=== PATIENT | female | born 1975 | race Asian ===

== ENCOUNTER → 2018-02-20 | Outpatient (CLI) | payer OTHER | LOC: M RAD 16:18 | DX: Z12.31 Encounter for screening mammogram for malignant neoplasm of breast (principal) ==

== ENCOUNTER → 2019-04-30 | Outpatient (CLI) | payer OTHER ==
--- NOTE | 2019-05-01 14:10 | REP ---
Thyroid uptake and scan: History: Thyrotoxicosis with diffuse goiter. Technique: 505 microcuries of I 123 sodium iodine is ingested and 24 uptake value and functional images are acquired. Findings: Thyroid uptake is significantly increased at 60.44% (25 35%). Functional images demonstrate homogeneous uptake. The gland appears prominent in size. No cold or warm lesion is seen. Impression: Findings compatible with Graves disease. 60.44% thyroid uptake at 24 hours. Electronically Signed by Iain Lozada MD 05/01/2019 02:02 P
== END ==
LOC: M RAD 11:42
PROVIDERS: ATTEND Internal Medicine Endocrinology, Diabetes & Metabolism
DX: E05.00 Thyrotoxicosis with diffuse goiter without thyrotoxic crisis or storm (principal)
CPT/HCPCS: 78012; A9516

== ENCOUNTER → 2022-11-04 | Outpatient (CLI) | payer OTHER ==
[~2022-11-04] MED LIST: CIPR-249 PO; FLOM0.4C39 PO; KETO10TAB PO
== END ==
LOC: M WHC 13:58
PROVIDERS: ATTEND Nurse Practitioner Primary Care
DX: Z12.31 Encounter for screening mammogram for malignant neoplasm of breast (principal)

== ENCOUNTER 2022-11-08 12:36 | Emergency (ER) | payer OTHER ==
[2022-11-08 13:39] LABS: BASO % 0.2 % (0.0-1.0); EOS % 0.1 % (0.0-3.0); HEMATOCRIT 44.1 % (36.0-47.0); HEMOGLOBIN 14.4 g/dl (12.0-15.5); LYMPH # 1.3 10^3/uL (1.5-5.0); LYMPH % 8.4 % (24.0-44.0); MEAN CORPUSCULAR HEMOGLOBIN 27.9 pg (27.0-33.0); MEAN CORPUSCULAR HGB CONC 32.7 g/dl (32.0-36.5); MEAN CORPUSCULAR VOLUME 85.5 fl (80.0-96.0); MONO # 0.6 10^3/uL (0.0-0.8); MONO % 3.7 % (2.0-8.0); NEUTROPHILS # 13.8 10^3/uL (1.5-8.5); NEUTROPHILS % 87.2 % (36.0-66.0); PLATELET COUNT, AUTOMATED 284 10^3/uL (150-450); RED BLOOD COUNT 5.16 10^6/uL (4.00-5.40); WHITE BLOOD COUNT 15.8 10^3/uL (4.0-10.0)
[2022-11-08 14:07] LABS: ALBUMIN 3.7 G/DL (3.2-5.2); BILIRUBIN,DIRECT 0.2 MG/DL (<0.4); BILIRUBIN,TOTAL 0.7 MG/DL (0.3-1.2); TOTAL PROTEIN 7.2 G/DL (5.7-8.2)
[2022-11-08] MEDS ORDERED: cefTRIAXone SOD 1 GM in D5W MINI-BAG PLUS 50 ML IV ONE (16:05)
[2022-11-08] MEDS ORDERED: KETOROLAC 30 MG/ML 1ML VIAL IV ONE (16:05)
[2022-11-08] MEDS ORDERED: CIPR-249 PO (17:38)
[2022-11-08] MEDS ORDERED: KETO10TAB PO (17:38)
[2022-11-08] MEDS ORDERED: FLOM0.4C39 PO (17:38)
[2022-11-08 17:53] VITALS: BP 138/80; TEMP 98; O2SAT 99
== END 2022-11-08 17:54 | disposition home or self-care (01) ==
LOC: M ED 12:36
DX: N20.1 Calculus of ureter (principal); E03.9 Hypothyroidism, unspecified; Z79.83 Long term (current) use of bisphosphonates; Z79.899 Other long term (current) drug therapy
CPT/HCPCS: 74176; 80047; 80076; 81001; 83690; 84702; 85025; 87088; 87186; 96365; 96375; 99284; J0696; J1885

== ENCOUNTER → 2023-06-23 | Outpatient (CLI) | payer OTHER | LOC: M RAD 14:20 | PROVIDERS: ATTEND Student in an Organized Health Care Education/Training Program | DX: R09.89 Other specified symptoms and signs involving the circulatory and respiratory systems (principal); E05.90 Thyrotoxicosis, unspecified without thyrotoxic crisis or storm ==